=== PATIENT | female | born 1950 | race Caucasian/White ===

== ENCOUNTER 2019-02-12 19:05 | Emergency (ER) | payer MEDICARE ==
[2019-02-12] MEDS ORDERED: Diphtheria,Pertussis(Acell),Tetanus Vaccine 0.5 ML SDV IM ONE (19:12)
[2019-02-12] MEDS ORDERED: Lidocaine 1% with EPINEPHrine 1:100,000 50 ML MDV SUBCUT STA (19:12)
[2019-02-12] MEDS ORDERED: Lactated Ringers 1,000 ML IV ONE (19:17)
--- NOTE | 2019-02-12 19:18 | EDM.PDOC ---
ED HPI GENERAL MEDICAL PROBLEM - General Chief Complaint: Head Injury Stated Complaint: FALL VIA [place]TH Time Seen by Provider: 02/12/19 19:10 Source of Information: Reports: Patient, EMS. Denies: Old Records History Limitations: Reports: Other (no old records) - History of Present Illness INITIAL COMMENTS - FREE TEXT/NARRATIVE: 68 yo female from [place], [place] was walking into a local hotel and caught her foot on a slight rise and then hit her head on a door jam as she fell. She incurred a scalp laceration with considerable bleeding before arrival here via EMS. Is not on anticoagulants. No LOC. Mild neck pain. Dressing on head on arrival. Onset: Today Onset Date: 02/12/19 Onset Time: 18:55 Duration: Minutes:, Constant Location: Reports: Head Quality: Reports: Burning Severity: Moderate Improves with: Reports: None Worsens with: Reports: None Context: Reports: Trauma Associated Symptoms: Reports: Other (scalp laceration with mild neck pain) Treatments [facility] MEDICINE: Reports: Other (see below) (dressing per EMS) Head Pain Score (Numeric/FACES): 4 - Related Data Allergies Allergy/AdvReac Type Severity Reaction Status Date / Time No Known Allergies Allergy Verified 02/12/19 19:15 Home Meds: Home Meds Amitriptyline [Elavil] 1 tab PO 02/12/19 [History] Levothyroxine Sodium [Synthroid] 1 tab PO 02/12/19 [History] Metoprolol Succinate [Toprol XL] 1 tab PO 02/12/19 [History] Sertraline [Zoloft] 1 tab PO 02/12/19 [History] atorvaSTATin [Lipitor] 1 tab PO 02/12/19 [History] Review of Systems - Review of Systems Review Of Systems: See Below Constitutional: Reports: No Symptoms Eyes: Reports: No Symptoms Ears: Reports: No Symptoms Nose: Reports: No Symptoms Mouth/Throat: Reports: No Symptoms Respiratory: Reports: No Symptoms Cardiovascular: Reports: No Symptoms GI/Abdominal: Reports: No Symptoms Genitourinary: Reports: No Symptoms Musculoskeletal: Reports: Neck Pain (mild) Skin: Reports: Wound (scalp laceration) Neurological: Reports: Dizziness (when up) Psychiatric: Reports: No Symptoms ED EXAM, GENERAL - Physical Exam Exam: See Below Exam Limited By: No Limitations General Appearance: Alert, WD/WN, No Apparent Distress Eye Exam: Bilateral Eye: Normal Inspection Ears: Normal External Exam, Normal Canal, Hearing Grossly Normal Ear Exam: Bilateral Ear: Auricle Normal, Canal Normal Nose: Normal Inspection, No Blood Throat/Mouth: Normal Inspection, Normal Lips, Normal Oropharynx, Normal Voice, No Airway Compromise Head: Atraumatic, Normocephalic Neck: Normal Inspection, Limited Range of Motion (slight stiffness). No: Lymphadenopathy (R), Lymphadenopathy (L) Respiratory/Chest: No Respiratory Distress, Lungs Clear, Normal Breath Sounds, No Accessory Muscle Use Cardiovascular: Regular Rate, Rhythm, No Edema GI/Abdominal: Normal Bowel Sounds, Soft, Non-Tender, No Distention Back Exam: Normal Inspection. No: CVA Tenderness (R), CVA Tenderness (L) Extremities: Other (tenderness and ecchymosis to lateral R hand.). No: Non- Tender Neurological: Alert, Oriented, CN II-XII Intact, Normal Cognition, No Motor/ Sensory Deficits Psychiatric: Normal Affect, Normal Mood Skin Exam: Warm, Dry, Normal Color, No Rash, Wound/Incision (12 cm scalp lac, linear, with clots) ED TRAUMA PROCEDURES - Laceration/Wound Repair [place] Head Appearance: Subcutaneous, Linear, Clean Distal NVT: Neuro & Vascular Intact Anesthetic Type: Local Local Anesthesia - Lidocaine (Xylocaine): 1% with EPI (20 ml) Local Anesthetic Volume: Other (20 ml) Skin Prep: Saline Saline Irrigation (cc's): 120 Exploration/Debridement/Repair: Wound Explored Closed With: Theresa # of Sutures: 12 Drain Placement: No Sterile Dressing Applied: Nurse Tetanus Status Addressed: Yes Complications: No - Splinting Right Upper Extremity Splint Site: R hand and forearm gutter splint Pre-Procedure NV Status: Normal Post-Procedure NV Status: Normal Splint Material: Fiberglass Splint Design: Gutter Applied & Form Fitted By: Provider Provider Post-Splint Application NV Check: NV Status Normal Complications: No Progress/Comments: Spinted with 2 inch and 4 inch LLOYD wraps with 35 cm of 4 inch Orthoglass. Course - Vital Signs Text/Narrative:: No hard collar would fit this woman so a soft collar was applied. Dr. Simental accepted @ [facility] @ 2130h. ALS transport planned. aware. Last Recorded V/S: Last Vital Signs Temp 35.4 C 02/12/19 19:05 Pulse 113 H 02/12/19 21:11 Resp 19 02/12/19 21:11 BP 100/70 02/12/19 21:11 Pulse Ox 96 02/12/19 21:11 - Orders/Labs/Meds Orders: Active Orders 24 hr Category Date Time Status Vaccines to be Administered [RC] PER UNIT ROUTINE Care 02/12/19 19:12 Active Lactated Ringers @ 125 MLS/HR(1,000ml) Med 02/12/19 21:30 Ordered Lactated Ringers [Ringers, Lactated] 1,000 ml IV ASDIRECTED Labs: Laboratory Tests 02/12/19 Range/Units 20:05 Hgb 9.7 L (12.0-15.0) g/dL Meds: Medications Discontinued Medications Generic Name Dose Route Start Last Admin Trade Name Freq PRN Reason Stop Dose Admin Bacitracin 15 gm 02/12/19 19:51 02/12/19 20:25 Bacitracin Oint TOP 02/12/19 19:52 1 dose NOW STA Administration Diphtheria/Tetanus/Acell Pertussis 0.5 ml 02/12/19 19:12 02/12/19 19:56 Adacel IM 02/12/19 19:13 0.5 ml .ONCE ONE Administration Hydrogen Peroxide 120 ml 02/12/19 19:14 02/12/19 19:55 Hydrogen Peroxide TOP 02/12/19 19:15 Not Given ONETIME ONE Lactated Ringer's 1,000 mls @ 1,000 mls/hr 02/12/19 19:17 02/12/19 19:53 Ringers, Lactated IV 02/12/19 20:16 1,000 mls/hr BOLUS ONE Administration Ketorolac Tromethamine 15 mg 02/12/19 19:50 02/12/19 20:03 Toradol IVPUSH 02/12/19 19:51 15 mg ONETIME ONE Administration Lidocaine/Epinephrine 10 ml 02/12/19 19:12 02/12/19 19:55 Xylocaine 1% With Epinephrine 1:100,000 SUBCUT 02/12/19 19:13 10 ml NOW STA Administration - Radiology Interpretation Free Text/Narrative:: CT head- CT neck- R hand X-ray-5th metacarpal fx without displacement. CT Results Date: 02/12/19 Departure - Departure Time of Disposition: 21:33 Disposition: DC/Tfer to Acute Hospital 02 Condition: Fair Clinical Impression: Closed fracture of cervical vertebra without spinal cord injury Qualifiers: Encounter type: initial encounter Cervical vertebra fracture level: C2 Qualified Code(s): S12.100A - Unspecified displaced fracture of second cervical vertebra, initial encounter for closed fracture Metacarpal bone fracture Qualifiers: Encounter type: initial encounter Metacarpal bone: fifth Fracture type: closed Metacarpal location: shaft Fracture alignment: nondisplaced Laterality: right Qualified Code(s): S62.356A - Nondisplaced fracture of shaft of fifth metacarpal bone, right hand, initial encounter for closed fracture - Discharge Information *PRESCRIPTION DRUG MONITORING PROGRAM REVIEWED*: No *COPY OF PRESCRIPTION DRUG MONITORING REPORT IN PATIENT SEBASTIEN: No Referrals: PCP,None [Primary Care Provider] - Forms: ED Department Discharge - My Orders Last 24 Hours: My Active Orders 02/12/19 19:12 Vaccines to be Administered [RC] PER UNIT ROUTINE 02/12/19 21:30 Lactated Ringers @ 125 MLS/HR(1,000ml) Lactated Ringers [Ringers, Lactated] 1, 000 ml IV ASDIRECTED - Assessment/Plan Last 24 Hours: My Active Orders 02/12/19 19:12 Vaccines to be Administered [RC] PER UNIT ROUTINE 02/12/19 21:30 Lactated Ringers @ 125 MLS/HR(1,000ml) Lactated Ringers [Ringers, Lactated] 1, 000 ml IV ASDIRECTED
[2019-02-12] MEDS ORDERED: Ketorolac 30 MG/ML SDV IVPUSH ONE (19:50)
[2019-02-12] MEDS ORDERED: Bacitracin Oint 28.35 GM Tube TOP STA (19:51)
--- NOTE | 2019-02-12 21:06 | CRLCR ---
INDICATION: Fall, right hand pain TECHNIQUE: Hand radiograph 3 views right COMPARISON: None FINDINGS: Bone: There is an oblique, nondisplaced fracture present in the 5th metacarpal. ORIF of the distal radius with a metallic T plate is present and partially visualized. A tiny corticated ossicle is seen near the ulnar styloid. Joint: Mild osteoarthritis of the DIP joints are noted. Soft tissue: Unremarkable. No radiopaque foreign bodies are seen. IMPRESSION: 1. There is an oblique, nondisplaced fracture present in the 5th metacarpal. Dictated by Brett Alberto MD @ 02/12/2019 9:05:33 PM Dictated by: Brett Alberto MD @ 02/12/2019 21:05:37 (Electronically Signed)
--- NOTE | 2019-02-12 21:13 | CRLCT ---
INDICATION: Head injury with neck pain, stiffness TECHNIQUE: CT Head without i.v. contrast. COMPARISON: None FINDINGS: CSF space: Unremarkable for age. Brain: No evidence of mass, acute infarction or hemorrhage is seen. No mass-effect or midline shift is seen. Mild diffuse cortical atrophy is noted. The brain parenchyma is otherwise normal in appearance with preservation of the cabello-white matter junction. Calvarium: Trace orbital emphysema is present bilaterally with a suspected hairline fracture involving the posterior wall of the right frontal sinus and a planum sphenoidale. Opacification of the right frontal sinus, right ethmoid air cells seen with fluid noted in the sphenoid sinuses. The mastoid air cells are clear. The calvarium is unremarkable in appearance with no fractures identified. A subcutaneous hematoma with skin sai noted over the anterior vertex. IMPRESSIONS: 1. No evidence of acute infarction, intracranial hemorrhage, or mass-effect seen. 2. Trace orbital emphysema is present bilaterally with a suspected hairline fracture involving the posterior wall of the right frontal sinus and a planum sphenoidale. The findings were discussed with Dr. Foster at 9:10 PM. Dictated by Brett Alberto MD @ 02/12/2019 9:04:26 PM Please note that all CT scans at this facility use dose modulation, iterative reconstruction, and/or weight-based dosing when appropriate to reduce radiation dose to as low as reasonably achievable. Dictated by: Brett Alberto MD @ 02/12/2019 21:12:24 (Electronically Signed)
--- NOTE | 2019-02-12 21:15 | CRLCT ---
INDICATION: Neck injury TECHNIQUE: CT cervical spine without i.v. contrast. Coronal and sagittal reformats were obtained. COMPARISON: None FINDINGS: Alignment: Unremarkable. Bone: There is nondisplaced fracture present within the bilateral lamina of C1. A severely comminuted fracture seen in the left lateral mass of C2, involving the left transverse foramen. A hairline fracture is seen along the base of the dens, extending into the right lateral mass of C2. Fractures of the C5, C6, C7 and T1 and T2 and T3 spinous processes are noted. The fractures at C6 involve the lamina and the right inferior articular process. Severe compression deformity of T4 is partially visualized. Disc: There are degenerative disc disease noted at C5-6 and C6-7. Scattered facet osteoarthritis is noted bilaterally. Soft tissue: The prevertebral soft tissues are unremarkable in appearance. The visualized lung apices and mediastinum are unremarkable. IMPRESSIONS: 1. There is nondisplaced fracture present within the bilateral lamina of C1. 2. A severely comminuted fracture seen in the left lateral mass of C2, involving the left transverse foramen. A hairline fracture is seen along the base of the dens, extending into the right lateral mass of C2. If there are any neurologic deficits, evaluation with CTA recommended to exclude injury of the left vertebral artery. 3. Fractures of the C5, C6, C7 and T1 and T2 and T3 spinous processes are noted. The fractures at C6 involve the lamina and the right inferior articular process. 4. Severe compression deformity of T4 is partially visualized. The findings were discussed with Dr. Foster at 9:10 PM. Dictated by Brett Alberto MD @ 02/12/2019 9:13:23 PM Please note that all CT scans at this facility use dose modulation, iterative reconstruction, and/or weight-based dosing when appropriate to reduce radiation dose to as low as reasonably achievable. Dictated by: Brett Alberto MD @ 02/12/2019 21:14:20 (Electronically Signed)
[2019-02-12] MEDS ORDERED: Lactated Ringers 1,000 ML IV SCH (21:30)
[2019-02-12] MEDS ORDERED: Acetaminophen 1,000 MG in Premix Bag 1 BAG IV ONE (22:15)
--- NOTE | 2019-02-12 23:11 | CRLCR ---
INDICATION: Fall with chest pain TECHNIQUE: Chest radiograph 1 view COMPARISON: None FINDINGS: Severe degradation of image quality noted due to body habitus. Mediastinum: The mediastinum is normal in appearance. The heart silhouette is normal in size and morphology. Lung: Both lungs are unremarkable in appearance. No sign of pleural effusion seen. No pneumothorax is identified. the left 4th and 6th ribs noted. IMPRESSION: 1. No acute cardiopulmonary disease is seen. 2. Severe degradation of image quality noted due to body habitus. Dictated by: Brett Alberto MD @ 02/12/2019 23:09:30 (Electronically Signed)
== END 2019-02-12 23:02 ==
LOC: JP.ED 19:05
DX: S62.356A Nondisplaced fracture of shaft of fifth metacarpal bone, right hand, initial encounter for closed fracture (principal); S12.100A Unspecified displaced fracture of second cervical vertebra, initial encounter for closed fracture; S01.01XA Laceration without foreign body of scalp, initial encounter; Z79.899 Other long term (current) drug therapy; W23.1XXA Caught, crushed, jammed, or pinched between stationary objects, initial encounter; Z23 Encounter for immunization
CPT/HCPCS: 12001; 29125; 36415; 51702; 70450; 71045; 72125; 73130; 85018; 90471; 90715; 96361; 96374; 96375; 99285; A9270; J0131; J1885; J7120; 12004